=== PATIENT | female | born 1970 | race Caucasian/White ===

== ENCOUNTER 2017-05-20 17:37 | Emergency (ER) | payer BC ==
[2017-05-20 17:47] VITALS: RESP 18
--- NOTE | 2017-05-20 20:53 | ED ---
General Adult HPI - General Chief complaint: Abdominal Pain Stated complaint: constipation after medication Time Seen by Provider: 05/20/17 20:36 Source: patient, RN notes reviewed, old records reviewed Mode of arrival: ambulatory Limitations: no limitations - History of Present Illness Initial comments: 47-year-old female presents to the emergency department for a chief complaint of constipation. Patient states she was at work today and felt like she had to have a bowel movement but could not pass stool. Patient states her last bowel movement was yesterday and it was soft and of moderate size. Patient states she had a bowel movement every day for at least the past 3 days. Patient denies blood in her stool. Patient denies any abdominal pain, nausea or vomiting. Patient denies any recent watery stools. Patient denies all surgeries of the abdomen except for gallbladder removal. Patient denies any shortness of breath or chest pain. Patient denies any urinary symptoms including frequent urination and burning with urination. Patient denies any recent fever or chills. Patient denies history of diverticulitis or other abdominal problems. Patient denies possible due to tubal. - Related Data Previous Rx's Medication Instructions Recorded Magnesium Citrate 195 mg PO DAILY PRN #1 bottle 05/20/17 Magnesium Citrate 296 ml PO DAILY PRN #1 bottle 05/20/17 Allergies Allergy/AdvReac Type Severity Reaction Status Date / Time No Known Allergies Allergy Verified 05/20/17 20:59 Review of Systems ROS Statement: Those systems with pertinent positive or pertinent negative responses have been documented in the HPI. ROS Other: All systems not noted in ROS Statement are negative. Past Medical History Past Medical History: No Reported History History of Any Multi-Drug Resistant Organisms: None Reported Past Surgical History: No Surgical Hx Reported Past Psychological History: No Psychological Hx Reported Smoking Status: Never smoker Past Alcohol Use History: Rare Past Drug Use History: None Reported General Exam Limitations: no limitations General appearance: alert, in no apparent distress Head exam: Present: atraumatic, normocephalic, normal inspection Respiratory exam: Present: normal lung sounds bilaterally. Absent: respiratory distress, wheezes, rales, rhonchi, stridor Cardiovascular Exam: Present: regular rate, normal rhythm, normal heart sounds. Absent: systolic murmur, diastolic murmur, rubs, gallop, clicks GI/Abdominal exam: Present: soft, normal bowel sounds. Absent: distended, tenderness, guarding, rebound, rigid Extremities exam: Present: normal inspection, full ROM, normal capillary refill. Absent: tenderness, pedal edema, joint swelling, calf tenderness Back exam: Present: normal inspection, full ROM. Absent: tenderness, muscle spasm, paraspinal tenderness, vertebral tenderness Neurological exam: Present: alert Psychiatric exam: Present: normal affect, normal mood Skin exam: Present: warm, dry, intact, normal color. Absent: rash Course Vital Signs 05/20/17 05/20/17 05/20/17 17:41 20:40 21:21 Temperature 97.7 F 98.2 F Pulse Rate 84 85 Respiratory 18 18 Rate Blood Pressure 146/84 160/78 O2 Sat by Pulse 98 98 Oximetry 05/20/17 22:01 Temperature Pulse Rate 97 Respiratory 18 Rate Blood Pressure 122/72 O2 Sat by Pulse 97 Oximetry Medical Decision Making - Medical Decision Making 47-year-old female presents to the emergency department for a chief complaint of constipation. Patient complains that she was at work when she felt like she had to have a bowel movement but was unsuccessful. Patient's last bowel movement was last night. It was soft and of moderate size. Patient has had bowel movements daily for the past at least 3 days. Denies any urinary symptoms , shortness of breath, chest pain, nausea, vomiting, recent loose stool. No history of abdominal problems. Only abdominal surgery was gallbladder removal. Patient states she was constipated 2 weeks ago and took a stool softener magnesium citrate with relief. CBC, CMP, abdominal x-ray, and UA was ordered. KUB showed normal gas pattern and no sign of obstruction or pneumoperitoneum. Fecal pattern is normal. Nonacute abdomen. CBC, CMP and UA are unremarkable. Patient states she has stool softener at home. She can take that. If she doesn 't have a bowel movement in 24 hours she can take magnesium citrate as she tolerated that well 2 weeks ago and it worked for her.. Patient will follow up with primary care provider in one to 2 days. She is aware she can return to the emergency Department if she has any more difficulties or develops severe pain. - Lab Data Result diagrams: 05/20/17 21:00 05/20/17 21:00 Lab Results 05/20/17 05/20/17 05/20/17 Range/Units 21:00 21:00 21:03 WBC 8.3 (3.8-10.6) k/uL RBC 4.60 (3.80-5.40) m/uL Hgb 14.9 (11.4-16.0) gm/dL Hct 41.9 (34.0-46.0) % MCV 91.0 (80.0-100.0) fL MCH 32.5 (25.0-35.0) pg MCHC 35.7 (31.0-37.0) g/dL RDW 11.8 (11.5-15.5) % Plt Count 283 (150-450) k/uL Neutrophils % 57 % Lymphocytes % 31 % Monocytes % 5 % Eosinophils % 4 % Basophils % 1 % Neutrophils # 4.8 (1.3-7.7) k/uL Lymphocytes # 2.6 (1.0-4.8) k/uL Monocytes # 0.4 (0-1.0) k/uL Eosinophils # 0.4 (0-0.7) k/uL Basophils # 0.1 (0-0.2) k/uL Sodium 143 (137-145) mmol/L Potassium 4.1 (3.5-5.1) mmol/L Chloride 102 (98-107) mmol/L Carbon Dioxide 26 (22-30) mmol/L Anion Gap 15 mmol/L BUN 12 (7-17) mg/dL Creatinine 0.53 (0.52-1.04) mg/dL Est GFR (CKD-EPI)AfAm >90 (>60 ml/min/1.73 sqM) Est GFR (CKD-EPI)NonAf >90 (>60 ml/min/1.73 sqM) Glucose 91 (74-99) mg/dL Calcium 9.7 (8.4-10.2) mg/dL Total Bilirubin 0.6 (0.2-1.3) mg/dL AST 53 H (14-36) U/L ALT 76 H (9-52) U/L Alkaline Phosphatase 110 (38-126) U/L Total Protein 7.7 (6.3-8.2) g/dL Albumin 4.4 (3.5-5.0) g/dL Urine Color Yellow Urine Appearance Clear (Clear) Urine pH 5.5 (5.0-8.0) Ur Specific [place] 1.026 (1.001-1.035) Urine Protein Negative (Negative) Urine Glucose (UA) Negative (Negative) Urine Ketones Trace H (Negative) Urine Blood Negative (Negative) Urine Nitrite Negative (Negative) Urine Bilirubin Negative (Negative) Urine Urobilinogen <2.0 (<2.0) mg/dL Ur Leukocyte Esterase Trace H (Negative) Urine RBC 1 (0-5) /hpf Urine WBC 4 (0-5) /hpf Urine WBC Clumps Rare H (None) /hpf Ur Squamous Epith Cells 5 H (0-4) /hpf Amorphous Sediment Rare H (None) /hpf Urine Bacteria Rare H (None) /hpf Urine Mucus Few H (None) /hpf Disposition Clinical Impression: Constipation Disposition: HOME SELF-CARE Condition: Good Instructions: Constipation (ED), High Fiber Diet (ED) Additional Instructions: Please take magnesium citrate if you do not have a bowel movement in the next 24 hours. He may take [id number] stool softener. Please return to the emergency department if symptoms worsen, you continue not to have bowel movements, or develops severe abdominal pain. Follow-up with primary care provider in one to 2 days. Prescriptions: Magnesium Citrate 195 mg PO DAILY PRN #1 bottle PRN Reason: Constipation Magnesium Citrate 296 ml PO DAILY PRN #1 bottle PRN Reason: Constipation Referrals: Carleen Jules DO [Primary Care Provider] - 1-2 days Time of Disposition: 21:47
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
[2017-05-20 21:22] VITALS: TEMP 98.2
[2017-05-20 21:24] LABS: ALT 76 U/L (9-52); AST 53 U/L (14-36); Albumin 4.4 g/dL (3.5-5.0); Alkaline Phosphatase 110 U/L (38-126); Anion Gap 15 mmol/L; Blood Urea Nitrogen 12 mg/dL (7-17); Calcium 9.7 mg/dL (8.4-10.2); Carbon Dioxide 26 mmol/L (22-30); Chloride 102 mmol/L (98-107); Glucose 91 mg/dL (74-99); Potassium 4.1 mmol/L (3.5-5.1); Sodium 143 mmol/L (137-145); Total Bilirubin 0.6 mg/dL (0.2-1.3); Total Protein 7.7 g/dL (6.3-8.2)
[2017-05-20 21:26] LABS: Basophils # (A) 0.1 k/uL (0-0.2); Basophils % (A) 1 %; Eosinophils # (A) 0.4 k/uL (0-0.7); Eosinophils % (A) 4 %; HCT 41.9 % (34.0-46.0); HGB 14.9 gm/dL (11.4-16.0); Lymphocytes # (A) 2.6 k/uL (1.0-4.8); Lymphocytes % (A) 31 %; MCH 32.5 pg (25.0-35.0); MCHC 35.7 g/dL (31.0-37.0); Mean Platelet Volume 7.5; Monocytes # (A) 0.4 k/uL (0-1.0); Monocytes % (A) 5 %; Neutrophils # (A) 4.8 k/uL (1.3-7.7); Neutrophils % (A) 57 %; Platelet Count 283 k/uL (150-450); RDW 11.8 % (11.5-15.5); WBC 8.3 k/uL (3.8-10.6)
[2017-05-20 21:39] LABS: Amorphous Sediment,Urine Rare /hpf; Appearance,Urine Clear (Clear); Bacteria,Urine Rare /hpf; Bilirubin,Urine Negative (Negative); Blood,Urine Negative (Negative); Color,Urine Yellow; Glucose,Urine (UA) Negative (Negative); Ketones,Urine Trace (Negative); Leukocyte Esterase,Urine Trace (Negative); Mucus,Urine Few /hpf; Nitrite,Urine Negative (Negative); PH, Urine 5.5 (5.0-8.0); Protein,Urine Negative (Negative); RBC,Urine 1 /hpf (0-5); Specific Gravity,Urine 1.026 (1.001-1.035); Squamous Epithelial Cell,Urine 5 /hpf (0-4); Urobilinogen,Urine <2.0 mg/dL (<2.0); WBC,Urine 4 /hpf (0-5)
[2017-05-20 22:02] VITALS: BP 122/72; PULSE 97
== END 2017-05-20 22:02 | disposition home or self-care (01) ==
LOC: EC 17:37
DX: K59.00 Constipation, unspecified (principal); Z90.49 Acquired absence of other specified parts of digestive tract
CPT/HCPCS: 36415; 74018; 80053; 81001; 85025; 99284

== ENCOUNTER → 2017-08-16 | Outpatient (CLI) | payer BC ==
--- NOTE | 2017-08-19 14:52 | MM ---
Reason for exam: screening (asymptomatic). Last mammogram was performed 5 years and 3 months ago. Physical Findings: A clinical breast exam by your physician is recommended on an annual basis and results should be correlated with mammographic findings. MG 3D Screening Mammo W/Cad Bilateral CC and MLO view(s) were taken. Prior study comparison: May 20, 2012, bilateral digital screening mammo w/CAD. May 25, 2011, bilateral digital screening mammo w/CAD. There are scattered fibroglandular densities. No significant changes when compared with prior studies. ASSESSMENT: Benign, BI-RAD 2 RECOMMENDATION: Routine screening mammogram of both breasts in 1 year.
== END | disposition home or self-care (01) ==
LOC: RADMAMWWP 10:38
PROVIDERS: ATTEND Family Medicine
DX: Z12.31 Encounter for screening mammogram for malignant neoplasm of breast (principal)
CPT/HCPCS: 77063; 77067

== ENCOUNTER 2018-10-27 15:47 | Emergency (ER) | payer OTHER, BC ==
[2018-10-27 16:39] VITALS: BP 112/86; PULSE 118; RESP 18; TEMP 98.4
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
== END 2018-10-27 18:20 | disposition home or self-care (01) ==
LOC: EC 15:47
DX: M25.512 Pain in left shoulder (principal); V49.40XA Driver injured in collision with unspecified motor vehicles in traffic accident, initial encounter; Y93.89 Activity, other specified; Y92.410 Unspecified street and highway as the place of occurrence of the external cause
CPT/HCPCS: 99283